=== PATIENT | male | born 1990 | race Caucasian/White ===

== ENCOUNTER 2019-01-17 05:11 | Emergency (ER) | payer OTHER, SELFPAY ==
[~2019-01-17] VITALS: Ht 180.3 cm; Wt 70.5 kg
[2019-01-17 05:11] VITALS: BP 122/60
[2019-01-17] MEDS ORDERED: ADDE10CA3 PO (05:27)
[2019-01-17] MEDS ORDERED: IBUPROFEN 600 MG TAB PO ONE (05:30)
--- NOTE | 2019-01-17 09:09 | REP ---
LEFT HAND COMPLETE: 01/17/2019. CLINICAL HISTORY: Trauma, pain. COMPARISON: Left wrist today. FINDINGS: Four views of the hand are provided. Distal radius and ulna, carpal bones, metacarpals, and phalanges are without fracture or focal lesion. There is no avulsion, erosion, foreign body, or other acute finding. No abnormal soft tissue swelling. IMPRESSION: 1. Negative left hand series. Electronically Signed by Jacques Thurston MD 01/17/2019 09:34 A
--- NOTE | 2019-01-17 09:09 | REP ---
LEFT WRIST COMPLETE: 01/17/2019. Comparison: Left hand series. Clinical history: Trauma, pain. Findings: Four views show distal radius and ulna intact. Carpal bones and their joint spaces are preserved. Metacarpals and articulations with the phalanges are unremarkable. Impression: 1. Negative left wrist series for fracture or focal bone lesion. Electronically Signed by Jacques Thurston MD 01/17/2019 09:34 A
== END 2019-01-17 06:23 | disposition home or self-care (01) ==
LOC: EDSEX 05:11 → M ED 05:11
DX: M25.532 Pain in left wrist (principal); Z79.899 Other long term (current) drug therapy; F17.210 Nicotine dependence, cigarettes, uncomplicated